=== PATIENT | male | born 1980 | race Caucasian/White ===

== ENCOUNTER 2016-10-21 17:24 | Emergency (ER) | payer MEDICAID ==
[~2016-10-21] VITALS: Ht 172.7 cm; Wt 104.3 kg
[2016-10-21 17:28] VITALS: BP 155/93
--- NOTE | 2016-10-21 20:04 | NUR ---
PATIENT LEFT WITHOUT BEING SEEN BY DR. BRITO. NO FURTHER CARE PROVIDED FOR PATIENT.
== END 2016-10-21 20:04 | disposition left against medical advice (07) ==
LOC: MED 17:24
DX: R53.1 Weakness (principal); R42 Dizziness and giddiness; Z53.21 Procedure and treatment not carried out due to patient leaving prior to being seen by health care provider